=== PATIENT | male | born 1935 | race Native Hawaiian/Other Pacific Islander ===

== ENCOUNTER 2016-08-22 14:49 | Emergency (ER) | payer OTHER ==
[~2016-08-22] VITALS: Ht 172.7 cm; Wt 72.6 kg
[~2016-08-22 14:49] MED LIST: ALBUTEROL0.083 % IN; ALPR1TAB61 PO; ASPI-93 PO; CRESTOR20 MG PO; DEPAKOTE500 MG PO; DOCU100C10 PO; FINA5TAB2 PO; FOLI1TAB26 PO; GALANTAMINE8 MG PO; HYDR-2748 PO; METO25TA4 PO; OMEPRAZOLE20 M1 PO; [UNRECOGNIZED DRUG - OTHER]
[2016-08-22 16:03] LABS: PLATELET COUNT 171 K/uL (142-355)
[2016-08-22 16:08] LABS: POTASSIUM 3.8 mmol/L (3.6-5.2); SODIUM 139 mmol/L (136-145)
[2016-08-22 19:58] VITALS: BP 104/64; TEMP 98
== END 2016-08-22 19:59 | disposition home or self-care (01) ==
LOC: ED 14:49
DX: K52.9 Noninfective gastroenteritis and colitis, unspecified (principal)
CPT/HCPCS: 36415; 80048; 82150; 83690; 85027; 99283; Q9963

== ENCOUNTER 2020-04-17 10:55 | Emergency (ER) | payer OTHER ==
[~2020-04-17] VITALS: Ht 175.3 cm; Wt 79.4 kg
[2020-04-17 11:15] VITALS: TEMP 98.7
[2020-04-17 11:48] LABS: PLATELET COUNT 153 K/uL (142-355)
[2020-04-17 11:54] LABS: POTASSIUM 3.9 mmol/L (3.6-5.2); SODIUM 141 mmol/L (136-145)
[2020-04-17 12:04] LABS: PARTIAL THROMBOPLASTIN TIME 24.5 SECONDS (24.5-33.6)
[2020-04-17 13:00] VITALS: BP 150/67
== END 2020-04-17 13:13 | disposition still patient (30) ==
LOC: ED 10:55
PROVIDERS: Hospitalist
DX: R07.89 Other chest pain (principal); R06.02 Shortness of breath
CPT/HCPCS: 36415; 80053; 82550; 83880; 84484; 85027; 85610; 85730; 93005; 99283; J2405

== ENCOUNTER 2021-07-22 20:13 | Inpatient (IN) | payer OTHER ==
[~2021-07-22] VITALS: Ht 172.7 cm; Wt 73.2 kg
[~2021-07-22 20:13] MED LIST changes: -CRESTOR20 MG PO; +GALANTAMINE4 MG PO; -GALANTAMINE8 MG PO; +ROSUVASTATIN CA40 MG PO
[2021-07-22 20:20] VITALS: BP 138/73; TEMP 98.5
[2021-07-22 20:47] LABS: PLATELET COUNT 237 K/uL (142-355)
[2021-07-22 21:02] LABS: POTASSIUM 4.4 mmol/L (3.6-5.2)
[2021-07-22 21:08] LABS: PARTIAL THROMBOPLASTIN TIME 25.3 SECONDS (24.5-33.6)
[2021-07-22 23:45] VITALS: BP 109/55; TEMP 97.4; Ht 172.7 cm; Wt 73.2 kg
[2021-07-23 00:20] VITALS: BP 111/76; TEMP 97.6
[2021-07-23 04:20] VITALS: BP 126/50; TEMP 97.5
[2021-07-23 08:00] VITALS: BP 132/61; TEMP 97.9
[2021-07-23] MEDS ORDERED: PREGABALIN150 MG PO (08:52)
[2021-07-23] MEDS ORDERED: [UNRECOGNIZED DRUG - OTHER] PO (08:53)
[2021-07-23] MEDS ORDERED: FUROSEMIDE20 MG PO (08:54)
[2021-07-23] MEDS ORDERED: CYPROHEPTADINE H4 MG PO (08:54)
[2021-07-23] MEDS ORDERED: IBU800 MG PO (08:56)
[2021-07-23] MEDS ORDERED: CLONAZEPAM PO (08:57)
[2021-07-23] MEDS ORDERED: CLONAZEP ODT0.5 MG PO (08:58)
[2021-07-23] MEDS ORDERED: LEVE500T5 PO (08:59)
[2021-07-23] MEDS ORDERED: KEPPRA1000 MG PO (08:59)
[2021-07-23] MEDS ORDERED: COATED ASPIRIN325 MG PO (09:00)
[2021-07-23] MEDS ORDERED: VITAMIN B-121000 MCG PO (09:01)
[2021-07-23] MEDS ORDERED: BACLOFEN10 MG PO (09:02)
[2021-07-23 12:00] VITALS: BP 93/66; TEMP 97.6
[2021-07-23 16:00] VITALS: BP 142/51; TEMP 97.7
[2021-07-23 19:47] VITALS: BP 121/50
[2021-07-24 00:06] VITALS: BP 129/46; TEMP 96.5
[2021-07-24 03:44] VITALS: BP 118/59; TEMP 97.5
[2021-07-24 12:00] VITALS: BP 177/59; TEMP 96.1
[2021-07-24 13:50] LABS: PLATELET COUNT 181 K/uL (142-355)
[2021-07-24 13:57] LABS: POTASSIUM 4.1 mmol/L (3.6-5.2)
[2021-07-24 16:00] VITALS: BP 144/46; TEMP 97.5
[2021-07-24 19:59] VITALS: TEMP 97.2
[2021-07-24 23:52] VITALS: BP 152/58; TEMP 97.3
[2021-07-25 04:00] VITALS: BP 132/50; TEMP 97.6
[2021-07-25 07:42] LABS: POTASSIUM 3.5 mmol/L (3.6-5.2)
[2021-07-25 08:00] VITALS: BP 115/42; TEMP 97.8
[2021-07-25 08:39] LABS: PLATELET COUNT 189 K/uL (142-355)
[2021-07-25 12:00] VITALS: BP 127/50; TEMP 97.7
[2021-07-25 16:00] VITALS: BP 144/57; TEMP 97.5
[2021-07-25 20:00] VITALS: BP 138/58; TEMP 98.6
[2021-07-25 23:29] VITALS: BP 142/55; TEMP 97.5
[2021-07-26 04:00] VITALS: BP 137/54; TEMP 97.9
[2021-07-26 05:10] LABS: PLATELET COUNT 147 K/uL (142-355)
[2021-07-26 05:15] LABS: POTASSIUM 3.2 mmol/L (3.6-5.2)
[2021-07-26 08:30] VITALS: BP 135/61; TEMP 97.6
[2021-07-26 12:00] VITALS: BP 144/55; TEMP 97.8
[2021-07-26 16:00] VITALS: BP 136/52; TEMP 97.7
[2021-07-26 20:00] VITALS: BP 112/68; TEMP 98.9
[2021-07-27] VITALS: BP 114/70; TEMP 98.2
[2021-07-27 04:00] VITALS: BP 1114/74; TEMP 98.9
[2021-07-27 06:34] LABS: PLATELET COUNT 153 K/uL (142-355)
[2021-07-27 06:59] LABS: POTASSIUM 3.2 mmol/L (3.6-5.2)
[2021-07-27 08:00] VITALS: BP 135/54; TEMP 97.9
[2021-07-27 12:00] VITALS: BP 141/58; TEMP 97.9
[2021-07-28] MEDS ORDERED: CLONAZEP ODT2 MG PO (09:36)
[2021-07-28] MEDS ORDERED: LEVOFLOXACIN IV (09:52)
[2021-07-28] MEDS ORDERED: DEXTROSE IV (09:52)
[2021-07-28] MEDS ORDERED: ZIPR20IN IM (09:53)
[2021-07-28] MEDS ORDERED: LORA2INJ21 IM (09:54)
[2021-07-28] MEDS ORDERED: B121000 MC1 PO (09:55)
== END 2021-07-27 16:50 | disposition other institution (70) | DRG 189 ==
LOC: ED 20:13 → MED/SURG 21:30
PROVIDERS: ADMIT Hospitalist; ATTEND Internal Medicine Endocrinology, Diabetes & Metabolism
DX: J96.21 Acute and chronic respiratory failure with hypoxia (principal); G92.8 Other toxic encephalopathy; J44.1 Chronic obstructive pulmonary disease with (acute) exacerbation; N17.8 Other acute kidney failure; I50.9 Heart failure, unspecified; K21.9 Gastro-esophageal reflux disease without esophagitis; I25.10 Atherosclerotic heart disease of native coronary artery without angina pectoris; I10 Essential (primary) hypertension; E11.65 Type 2 diabetes mellitus with hyperglycemia; Z79.4 Long term (current) use of insulin; F03.90 Unspecified dementia, unspecified severity, without behavioral disturbance, psychotic disturbance, mood disturbance, and anxiety; F99 Mental disorder, not otherwise specified
CPT/HCPCS: 36415; 36416; 36600; 80048; 80053; 80320; 81000; 81002; 82550; 82805; 83605; 83880; 84484; 85027; 85610; 85730; 87040; 87635; 93005; 94640; 94664; 94760; 96360; 96361; 96365; 96375; 99284; J1956; J0132; J0456; J1200; J1650; J1815; J2060; J2920; J2930; J3370; J3486; J3490; U0003

== ENCOUNTER 2021-12-18 19:02 | Observation (INO) | payer OTHER ==
[~2021-12-18] VITALS: Ht 177.8 cm; Wt 74.8 kg
[~2021-12-18 19:02] MED LIST changes: +B121000 MC1 PO; +BACLOFEN10 MG PO; +CLON0.5T36 PO; +CLONAZEP ODT0.5 MG PO; +CLONAZEP ODT2 MG PO; +CLONAZEPAM PO; +COATED ASPIRIN325 MG PO; +CYPROHEPTADINE H4 MG PO; +DEXTROSE IV; +ESCI10TA PO; +FUROSEMIDE20 MG PO; +IBU800 MG PO; +KEPPRA1000 MG PO; +LEVE500T5 PO; +LEVOFLOXACIN IV; +LORA2INJ21 IM; +MEMA5TAB PO; +PREGABALIN150 MG PO; +VITAMIN B-121000 MCG PO; +ZIPR20IN IM; +[UNRECOGNIZED DRUG - OTHER] PO
[2021-12-18 19:07] VITALS: BP 144/72; TEMP 98
[2021-12-18 19:24] VITALS: BP 141/70
[2021-12-18 19:56] LABS: POTASSIUM 4.2 mmol/L (3.6-5.2)
[2021-12-18 19:58] LABS: PLATELET COUNT 154 K/uL (142-355)
[2021-12-18 20:06] LABS: PARTIAL THROMBOPLASTIN TIME 25.2 SECONDS (24.5-33.6)
[2021-12-18 20:24] VITALS: BP 137/70
[2021-12-18 21:00] VITALS: BP 135/69
[2021-12-18 23:09] VITALS: BP 122/74; TEMP 97.5; Ht 177.8 cm; Wt 74.8 kg
[2021-12-19] VITALS: BP 138/69; TEMP 97.8
[2021-12-19 04:00] VITALS: BP 128/61; TEMP 98.7
[2021-12-19 08:19] VITALS: BP 126/60; TEMP 98
--- NOTE | 2021-12-19 10:02 | NUR ---
PATIENT RESTING IN BED. RESPONSIVE TO VERBAL STIMULI. ALERT AND ORIENTED. NAD NOTED. RESPIRATIONS NONLABORED. LUNG SOUNDS CLEAR AND EQUAL. BOWEL SOUNDS PRESENT AND ACTIVE. 20G PERIPHERAL IV IN RIGHT HAND PATENT WITH GOOD BLOOD RETURN. PT STATES THAT HE IS READY TO GO HOME. PATIENT AMBULATES WITH ROLATOR.
--- NOTE | 2021-12-19 10:09 | NUR ---
Electrical Transmission Engineer spoke with patients Lulú because patient did not know [facility]. He said [facility]. She said that he was on the blue team, and that he had a customer service teller appointment and that the customer service teller had canceled it and told her to make another one, but she was sick and has not made it yet. Electrical Transmission Engineer also inquired about home health services that patient received and she said none. Electrical Transmission Engineer working to get patient follow up appointments and home health [facility]. Will notify on new appointments.
--- NOTE | 2021-12-19 10:20 | NUR ---
spoke with Kurtis leo at the [facility] in [place] and she is going to put in a consult for home health, set up a appointment to his PCP and reschedule his pulmonology consult. Avionics Systems Engineer inquired about him seeing a MD closer to home and she said all they had to do was request care in the community because of distance and that they could see a local doctor. Avionics Systems Engineer will get with and see who they would like to see as local PCP.
[2021-12-19] MEDS ORDERED: XANAX2 MG PO (11:06)
[2021-12-19] MEDS ORDERED: ALPRAZOLAM PO (11:07)
[2021-12-19] MEDS ORDERED: ZOLPIDEM PO (11:08)
[2021-12-19] MEDS ORDERED: CLON1TAB18 PO (11:09)
[2021-12-19] MEDS ORDERED: GABA300C2 PO ×2 (11:10)
[2021-12-19] MEDS ORDERED: CLEMASTINE2.68 MG PO (11:11)
[2021-12-19] MEDS ORDERED: CALAN SR120 MG PO (11:12)
[2021-12-19] MEDS ORDERED: ACID REDUCER20 MG PO (11:13)
[2021-12-19] MEDS ORDERED: BACLOFEN10 MG PO ×2 (11:14→11:15)
[2021-12-19] MEDS ORDERED: PANTOPRAZOLE 40MG TA PO (11:14)
[2021-12-19] MEDS ORDERED: EC-NAPROXEN500 MG PO (11:16)
[2021-12-19] MEDS ORDERED: DICYCLOMINE HYD10 MG PO (11:16)
[2021-12-19] MEDS ORDERED: TAMS0.4C PO (11:17)
[2021-12-19] MEDS ORDERED: CARAFATE1 GM PO (11:17)
[2021-12-19] MEDS ORDERED: CITALOPRAM20 M1 PO (11:18)
[2021-12-19] MEDS ORDERED: MOBIC15 MG PO (11:19)
[2021-12-19] MEDS ORDERED: SIMV20TA2 PO (11:19)
[2021-12-19] MEDS ORDERED: TEGRETOL XR200 MG PO (11:20)
[2021-12-19] MEDS ORDERED: ROWEEPRA500 MG PO (11:22)
--- NOTE | 2021-12-19 11:22 | NUR ---
Billboard Installer spoke with and she would like to use Dr. Hardwick as PCP. Billboard Installer told her that she would have to let the [facility] nurse know when she calls her to set up home health, pulmonolgy consult, and care in the community for them to be able to see a local MD.
[2021-12-19] MEDS ORDERED: VITAMIN D1000 UNIT PO (11:23)
[2021-12-19 11:48] VITALS: BP 143/63; TEMP 98.2
--- NOTE | 2021-12-19 13:56 | NUR ---
DISCHARGE INSTRUCTIONS PROVIDED TO PATIENT AND DAUGHTER. DAUGHTER VERBALIZED UNDERSTANDING. PATIENT WHEELED TO EXIT AND PLACED IN PERSONAL VEHICLE.
--- NOTE | 2021-12-19 16:25 | NUR ---
Loida Josue from the [place] called typewriters functional tester requesting some more information on patient as he would be setting up home health, pulmonology consult and care in the community under Dr. Hardwick for the patient.
== END 2021-12-19 13:45 | disposition home health service (06) ==
LOC: ED 19:02 → MED/SURG 20:15
PROVIDERS: Hospitalist; ADMIT Internal Medicine; ATTEND Internal Medicine
DX: R53.1 Weakness (principal); I25.10 Atherosclerotic heart disease of native coronary artery without angina pectoris; Z86.73 Personal history of transient ischemic attack (TIA), and cerebral infarction without residual deficits; F03.90 Unspecified dementia, unspecified severity, without behavioral disturbance, psychotic disturbance, mood disturbance, and anxiety; K21.9 Gastro-esophageal reflux disease without esophagitis; J44.9 Chronic obstructive pulmonary disease, unspecified; N40.0 Benign prostatic hyperplasia without lower urinary tract symptoms; E78.49 Other hyperlipidemia; I10 Essential (primary) hypertension
CPT/HCPCS: 36415; 80053; 81000; 82550; 83605; 83880; 84484; 85027; 85610; 85730; 87040; 87635; 93005; 94664; 94760; 96360; 99220; 99284; G0378; J1650; J1956; J2930; J3490; U0003

== ENCOUNTER 2022-04-02 22:58 | Emergency (ER) | payer OTHER ==
[~2022-04-02] VITALS: Ht 177.8 cm; Wt 77.1 kg
[~2022-04-02 22:58] MED LIST changes: +ACID REDUCER20 MG PO; +ALPRAZOLAM PO; +CALAN SR120 MG PO; +CARAFATE1 GM PO; +CITALOPRAM20 M1 PO; +CLEMASTINE2.68 MG PO; +CLON1TAB18 PO; +DICYCLOMINE HYD10 MG PO; +EC-NAPROXEN500 MG PO; +GABA300C2 PO; +MOBIC15 MG PO; +PANTOPRAZOLE 40MG TA PO; +ROWEEPRA500 MG PO; +SIMV20TA2 PO; +TAMS0.4C PO; +TEGRETOL XR200 MG PO; +VITAMIN D1000 UNIT PO; +XANAX2 MG PO; +ZOLPIDEM PO
[2022-04-02 23:05] VITALS: TEMP 98.6
[2022-04-02 23:15] LABS: PLATELET COUNT 164 K/uL (142-355)
[2022-04-02 23:21] LABS: POTASSIUM 4.6 mmol/L (3.6-5.2)
[2022-04-02 23:41] LABS: PARTIAL THROMBOPLASTIN TIME 25.3 SECONDS (24.5-33.6)
[2022-04-03 01:00] VITALS: BP 129/55
== END 2022-04-03 01:50 | disposition still patient (30) ==
LOC: ED 22:58
PROVIDERS: Family Medicine
DX: I20.0 Unstable angina (principal); I10 Essential (primary) hypertension
CPT/HCPCS: 36415; 80053; 82550; 84484; 85027; 85610; 85730; 93005; 99284